=== PATIENT | female | born 1995 | race Caucasian/White ===

== ENCOUNTER 2019-12-11 02:25 | Emergency (ER) | payer OTHER ==
[~2019-12-11] VITALS: Ht 162.6 cm; Wt 68.0 kg
--- NOTE | 2019-12-11 03:35 | NUR ---
PT AMBULATORY W/ ANTALGIC GAIT TOWARDS RESTROOM
[2019-12-11 03:56] LABS: *URINE HCG, QUAL NEGATIVE (NEGATIVE)
[2019-12-11] MEDS ORDERED: IBUPROFEN 600 MG TABLET PO ONE (04:00)
[2019-12-11] MEDS ORDERED: IBUPROFEN 600 MG TABLET ONE (04:01)
[2019-12-11] MEDS ORDERED: ONDANSETRON ODT 4 MG TAB.RAPDIS ONE (04:14)
[2019-12-11] MEDS ORDERED: ONDANSETRON ODT 4 MG TAB.RAPDIS SL ONE (04:15)
--- NOTE | 2019-12-11 06:13 | NUR ---
Patient discharged to home in stable conditon. Written and verbal after care instructions given. Patient verbalizes understanding of instructions. AMBULATORY W/ STABLE GAIT ALL BELONGINGS W/ PT
[2019-12-11 06:14] VITALS: BP 107/86
== END 2019-12-11 06:15 | disposition home or self-care (01) ==
LOC: ER 02:35
DX: S80.12XA Contusion of left lower leg, initial encounter (principal); S00.81XA Abrasion of other part of head, initial encounter; S16.1XXA Strain of muscle, fascia and tendon at neck level, initial encounter; F17.200 Nicotine dependence, unspecified, uncomplicated; M54.5 Low back pain; V43.62XA Car passenger injured in collision with other type car in traffic accident, initial encounter; Y93.89 Activity, other specified; Y92.89 Other specified places as the place of occurrence of the external cause; Y99.8 Other external cause status
CPT/HCPCS: 84703; A4663; Q0162

== ENCOUNTER 2021-12-05 12:43 | Emergency (ER) | payer MEDICAID, OTHER ==
[~2021-12-05] VITALS: Ht 160 cm; Wt 72.6 kg
--- NOTE | 2021-12-05 13:39 | NUR ---
Patient discharged to home in stable condition. Written and verbal after care instructions given. Patient verbalizes understanding of instructions. Stressed follow up or return to ER for worsening s/s.
== END 2021-12-05 13:40 | disposition home or self-care (01) ==
LOC: ER 12:43
DX: S62.501A Fracture of unspecified phalanx of right thumb, initial encounter for closed fracture (principal); V48.4XXA Person boarding or alighting a car injured in noncollision transport accident, initial encounter; Y92.89 Other specified places as the place of occurrence of the external cause
CPT/HCPCS: 73130; A4663